=== PATIENT | male | born 1945 | race Caucasian/White ===

== ENCOUNTER → 2024-01-07 13:13 | Outpatient (REF) | payer MEDICARE, BC, SELFPAY ==
[2024-01-07 15:24] LABS: % Eosinophils 1.8 % (0-6); % Immature Granulocytes 0.3 % (0-0.5); % Lymphocytes 22.2 % (20.5-51.1); % Neutrophils 66.7 % (42.2-75.2); Absolute Basophils 0.1 10^3/uL (0-0.2); Absolute Eosinophils 0.1 10^3/uL (0-0.7); Absolute Lymphocytes 1.7 10^3/uL (1.2-3.4); Absolute Monocytes 0.6 10^3/uL (0.1-0.6); Absolute Neutrophils 5.2 10^3/uL (1.4-6.5); Hematocrit 44.4 % (39.0-52.0); Hemoglobin 15.3 g/dL (13.0-18.0); Mean Corp Hgb Conc. 34.5 g/dL (33.0-37.0); Mean Corpuscular Hgb 31.4 pg (27.0-31.0); Nucleated Red Blood Cells % 0 % (-); Platelet Count 187 10^3/uL (130-400); Red Blood Cell Count 4.88 10^6/uL (4.70-6.10); Red Cell Dist. Width 12.5 % (11.5-14.5); White Blood Cell Count 7.7 10^3/uL (4.8-10.8)
[2024-01-07 15:41] LABS: LDH 207 U/L (120-246)
== END ==
LOC: HWLAB 13:13
PROVIDERS: ATTENDING PHYSICIAN Internal Medicine Hematology & Oncology; FAMILY PHYSICIAN Family Medicine
DX: C91.40 Hairy cell leukemia not having achieved remission (principal)
CPT/HCPCS: 36415; 83615; 85025

== ENCOUNTER → 2024-07-10 13:36 | Outpatient (REF) | payer MEDICARE, BC, SELFPAY ==
[2024-07-10 15:59] LABS: % Basophils 0.9 % (0-2); % Eosinophils 1.2 % (0-6); % Immature Granulocytes 0.4 % (0-0.5); % Lymphocytes 24.6 % (20.5-51.1); % Monocytes 7.6 % (1.7-9.3); % Neutrophils 65.3 % (42.2-75.2); Absolute Basophils 0.1 10^3/uL (0-0.2); Absolute Eosinophils 0.1 10^3/uL (0-0.7); Absolute Monocytes 0.6 10^3/uL (0.1-0.6); Absolute Neutrophils 5.2 10^3/uL (1.4-6.5); Hematocrit 42.3 % (39.0-52.0); Hemoglobin 14.8 g/dL (13.0-18.0); Mean Corpuscular Hgb 32.5 pg (27.0-31.0); Mean Corpuscular Volume 92.8 fL (80.0-94.0); Mean Platelet Volume 10.7 fL (7.4-10.4); Nucleated Red Blood Cells % 0 % (-); Platelet Count 173 10^3/uL (130-400); Red Blood Cell Count 4.56 10^6/uL (4.70-6.10); Red Cell Dist. Width 12.7 % (11.5-14.5)
[2024-07-10 16:15] LABS: LDH 204 U/L (120-246)
== END ==
LOC: HWLAB 13:36
PROVIDERS: ATTENDING PHYSICIAN Internal Medicine Hematology & Oncology; FAMILY PHYSICIAN Family Medicine
DX: C91.40 Hairy cell leukemia not having achieved remission (principal)
CPT/HCPCS: 36415; 83615; 85025

== ENCOUNTER → 2024-07-11 08:03 | Outpatient (REF) | payer MEDICARE, BC, SELFPAY ==
[2024-07-13 12:57] LABS: Number Of Markers 26 markers; Source Blood
== END ==
LOC: HWLAB 08:03
PROVIDERS: ATTENDING PHYSICIAN Internal Medicine Hematology & Oncology; FAMILY PHYSICIAN Family Medicine
DX: C91.40 Hairy cell leukemia not having achieved remission (principal)
CPT/HCPCS: 36415

== ENCOUNTER → 2025-01-06 09:41 | Outpatient (REF) | payer MEDICARE, BC, SELFPAY ==
[2025-01-06 09:21] LABS: % Basophils 0.4 % (0-2); % Eosinophils 1.5 % (0-6); % Immature Granulocytes 0.1 % (0-0.5); % Lymphocytes 22.8 % (20.5-51.1); % Monocytes 6.2 % (1.7-9.3); Absolute Eosinophils 0.1 10^3/uL (0-0.7); Absolute Lymphocytes 1.8 10^3/uL (1.2-3.4); Absolute Monocytes 0.5 10^3/uL (0.1-0.6); Absolute Neutrophils 5.5 10^3/uL (1.4-6.5); Hematocrit 48.6 % (39.0-52.0); Hemoglobin 16.4 g/dL (13.0-18.0); Mean Corp Hgb Conc. 33.7 g/dL (33.0-37.0); Mean Corpuscular Hgb 31.4 pg (27.0-31.0); Mean Corpuscular Volume 92.9 fL (80.0-94.0); Mean Platelet Volume 10.5 fL (7.4-10.4); Platelet Count 162 10^3/uL (130-400); Red Blood Cell Count 5.23 10^6/uL (4.70-6.10); Red Cell Dist. Width 12.4 % (11.5-14.5)
== END ==
LOC: OIDL 09:41
PROVIDERS: ATTENDING PHYSICIAN Internal Medicine Hematology & Oncology
DX: C91.40 Hairy cell leukemia not having achieved remission (principal); U07.1 COVID-19
CPT/HCPCS: 85025

== ENCOUNTER 2025-01-20 09:11 | Emergency (ER) | payer MEDICARE, BC, SELFPAY ==
[2025-01-20 09:12] VITALS: BP 127/56
--- NOTE | 2025-01-20 10:51 | ED.GENMED ---
History of Present Illness
General
Chief Complaint: Fall
Source: patient
Exam Limitations: none
Time Seen by Provider: 01/20/25 10:32
Nursing documentation reviewed up to this point in time: agreed with
History of Present Illness
History of Present Illness:
79-year-old male presents today for evaluation of fall. Patient was walking outside at the [place] because he had an appointment with his oncologist today and he tripped and fell landing on his face. reports he scraped his nose. He denies
loss of consciousness. He has very mild headache now. He hit his face and has an abrasion to his nose. He did get himself up. He has no other complaints. He is unsure of his last tetanus
Past History
Past History
ED Past Medical History: Psychiatric (Anxiety) and Other (Hypotension, orthostatic syncope)
ED Past Surgical History: Orthopedic (Knee arthroscopy, rotator cuff repair)
Social History
Tobacco: Non-smoker
Alcohol: Occasional
Personal:
Living: with family
Employment: Retired
Family History
Family History: Other (Noncontributory)
Review of Systems
Review of Systems
Allergies reviewed?: Yes
All Other Systems: ROS reviewed and negative except as documented in HPI and ROS
Constitutional: Reports no symptoms
EENT: Reports other (abrasion to nose )
Respiratory: Reports no symptoms
Cardiac: Reports no symptoms
ABD/GI: Reports no symptoms
Musculoskeletal: Denies neck pain
Skin: Reports other (abrasion to nose )
Neurological: Reports headache (no loc ); Denies dizzy, weakness or numbness
Psychiatric: Reports no symptoms
Phy Exam
General Physical Exam
General Presentation: no apparent distress
General age: appears stated age
General Skin: warm and dry
General Habitus: elderly
General Mental: alert
General Hydration: appears well hydrated
ENT Exam
ENT Exam: other (abrasion to nose ; dried blood to left nares nasal bone non tender no deformity )
Cardiovascular Exam
Cardiovascular Exam: regular rate/rhythm and no murmur
Pulmonary Exam
Pulmonary Exam: lungs clear and no respiratory distress
Neurological Exam
Neurological Exam: alert and oriented x3
Musculoskeletal Exam
Musculoskeletal Exam: other (no head injury no bony c spine tenderness full rom to all extremities )
Skin Exam
Skin Exam: normal color and warm/dry
Psychiatric Exam
Psychiatric Exam: normal mood/affect
Course
Orders/Labs/Results
Orders:
Orders
01/20/25 10:49
CT Head W/o Iv Contrast Urgent
Comment:
Reason For Exam: trauma
01/20/25 10:50
CT Cervical Spine W/o Iv Contr Urgent
Comment:
Reason For Exam: trauma
01/20/25 10:51
Tetanus/Diphth/Acelpertussis [Adacel] 0.5 ml IM .ONCE ONE
Vital Signs
Initial and Last Documented VS:
Initial Vital Signs
Temp Pulse Resp BP Pulse Ox
97.7 F 54 16 127/56 100
01/20/25 09:12 01/20/25 09:12 01/20/25 09:12 01/20/25 09:12 01/20/25 09:12
Last Documented Vital Signs
Temp Pulse Resp BP Pulse Ox
97.7 F 54 16 127/56 100
01/20/25 09:12 01/20/25 09:12 01/20/25 09:12 01/20/25 09:12 01/20/25 09:12
MDM/Problems Addressed
Differential Diagnosis Includes:
Not limited to intracranial hemorrhage, head injury contusion abrasion
MDM/Problems Addressed:
Patient describes a mechanical fall tripped and fell hitting his face sustaining abrasion to his nose. No loss of consciousness CT head and cervical spine are negative he is on blood thinners. He has no bony facial tenderness. Patient was
scheduled for a checkup by his oncologist. He is stable for discharge. His appointment is now at 230 pm today.
*Radiology
Radiology exam reviewed: radiology read reviewed
*Pulse Oximetry
Patient hypoxic: no
*Critical Care Note
Total Time (30-74mins, 75-104mins- exclusive of procedures): Not Applicable
ED Attending Note
-
Portions of this chart may have been created with voice recognition software.� Occasional wrong word or��sound alike� substitutions may have occurred due to the inherent limitations of voice recognition software.
Discharge Plan
Departure
Patient Disposition: Home (Routine Discharge)
Date of Disposition: 01/20/25
Time of Disposition: 12:52
Patient with high blood pressure during this ER visit?: No
Condition: Fair
Covid-19: Not Applicable
Discharge Problem:
Head injury, Abrasion, Contusion
Instructions: Head Injury in Adults (DC), Contusion (DC), Skin Abrasions (DC), BLOOD PRESSURE
Prescriptions:
No Action
cyanocobalamin (vitamin B-12) 1,000 MCG tablet
1,000 mcg PO DAILY
sertraline 50 MG tablet
75 mg PO DAILY
atorvastatin [Lipitor] 10 MG tablet
1 tab PO DAILY
omeprazole 20 MG capsule,delayed release(DR/EC)
1 tab PO DAILY
Referrals:
Aminah Guerrero, [Family Provider] -
Activity Restrictions/Additional Instructions:
Wash abrasion with soap and water twice a day apply small layer of antibiotic ointment. You were updated on tetanus vaccine. Follow-up with family doctor next of days return if any worsening of symptoms
Interventions
Interventions:
*Risk Screen - Suicide Last Done: 01/20/25 09:12
*General Assessment Last Done: 01/20/25 09:12
*Neglect/Abuse Screening Last Done: 01/20/25 12:00
*ED- Fall Risk Assessment Last Done: 01/20/25 11:16
*ED COVID-19 Vaccine History Last Done: 01/20/25 09:12
*Nursing Disposition Last Done: 01/20/25 12:59
ED-Musculoskeletal Assessment Last Done: 01/20/25 11:18
ED- Neurological Assessment Last Done: 01/20/25 11:17
ED-Skin Assessment Last Done: 01/20/25 11:18
Discharge Date and Time
Discharge Date/Time: 01/20/25 13:01
Print Language: [id number]
[2025-01-20] MEDS: ADACEL 0.5 ML IM (11:22)
== END 2025-01-20 13:01 | disposition home or self-care (01) ==
LOC: EMR 09:11
PROVIDERS: EMERGENCY PHYSICIAN Emergency Medicine; FAMILY PHYSICIAN Family Medicine
DX: S00.31XA Abrasion of nose, initial encounter (principal); W01.0XXA Fall on same level from slipping, tripping and stumbling without subsequent striking against object, initial encounter; Z23 Encounter for immunization
CPT/HCPCS: 90471; 99284; 70450; 72125; 90715

== ENCOUNTER → 2025-07-22 11:55 | Outpatient (REF) | payer MEDICARE, BC, SELFPAY ==
[2025-07-22 13:19] LABS: Hematocrit 44.1 % (39.0-52.0); Hemoglobin 14.9 g/dL (13.0-18.0); Mean Corp Hgb Conc. 33.8 g/dL (33.0-37.0); Mean Corpuscular Volume 92.6 fL (80.0-94.0); Nucleated Red Blood Cells % 0 % (-); Platelet Count 167 10^3/uL (130-400); Red Cell Dist. Width 12.4 % (11.5-14.5)
== END ==
LOC: REG 11:55
PROVIDERS: ATTENDING PHYSICIAN Internal Medicine Hematology & Oncology; FAMILY PHYSICIAN Family Medicine
DX: C91.40 Hairy cell leukemia not having achieved remission (principal)
CPT/HCPCS: 36415; 85025